=== PATIENT | female | born 1995 | race Caucasian/White ===

== ENCOUNTER 2024-10-11 15:15 | Emergency (ER) | payer OTHER, SELFPAY ==
[2024-10-11 15:26] VITALS: BP 165/97; PULSE 115; RESP 17; TEMP 36.4; O2SAT 100
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
[2024-10-11] MEDS: FLUORESCEIN SOD 1 MG/STRIP AFFCTD EYE (16:12)
[2024-10-11] MEDS: TETRACAINE HCL 0.5% OPHTH SOLN 4 ML BTL 1 DROP AFFCTD EYE (16:12)
--- OUTSIDE RECORDS SUMMARY | 2024-10-11 16:48 | XMS_ITS | Clinical Summary ---
Author Organization [facility] Address [facility] [place] [address] Care Team Providers Care Glue Line Operator Name Role Phone Melissa Chaney KENNEL SUPERVISOR Primary Care Provider [phone] Allergies Active Allergy Reactions Criticality Noted Date Comments Steroids Other (see comment) High 04/18/2020 DKA Tramadol Vomiting High 04/18/2020 Medications metFORMIN 500 MG tablet Take 500 mg by mouth 2 (two) times a day. 0 Active insulin lispro 100 UNIT/ML patient supplied PUMP Inject into the skin continuous. Make and model of pump: omnipod Insulin type in pump: lispro Basal rate: 1.85 9a-9p 1.65 9p-9a Insulin to CHO ratio: Patient does not have Insulin Sensitivity factor: Patient does not have Active fluconazole (DIFLUCAN) 200 MG tablet Take 1 tablet (200 mg total) by mouth once as needed. 1 tablet 2 Active psyllium (KONSYL) 100 % Pack Take 1 packet by mouth daily. May substitute with any fiber supplement 30 packet 2 Active Active Problems No known active problems Social History Tobacco Use Types Packs/Day Years Used Date Smoking Tobacco: Former Cigarettes Smokeless Tobacco: Never Alcohol Use Standard Drinks/Week Comments Never 0 (1 standard drink = 0.6 oz pur e alcohol) AUDIT-C Answer Date Recorded Frequency of Alcohol Consumption Never 01/30/2020 Average Number of Drinks Not on file 020 Frequency of Binge Drinking Not on file 01/11 Comments No Sex and Gender Information Value Date Recorded Sex Assigned at Not on file Legal Sex Female 2:54 AM CDT Gender Identity Not on file Sexual Orientation Not on file Last Filed Vital Signs Vital Sign Reading Time Taken Comments Blood Pressure 129/92 06/19/2023 12:29 AM OIL WELL SERVICE UNIT OPERATOR Pulse 88 06/19/2023 12:29 AM OIL WELL SERVICE UNIT OPERATOR Temperature 36.4 C (97.6 F) 06/18/2023 10:13 PM OIL WELL SERVICE UNIT OPERATOR Respiratory Rate 18 06/19/2023 12:29 AM OIL WELL SERVICE UNIT OPERATOR Oxygen Saturation 100% 06/19/2023 12:29 AM OIL WELL SERVICE UNIT OPERATOR Inhaled Oxygen Concentration - - Weight 95.3 kg (210 lb) 06/18/2023 10:13 PM OIL WELL SERVICE UNIT OPERATOR Height 160 cm (5' 3 ) 06/18/2023 10:13 PM OIL WELL SERVICE UNIT OPERATOR Body Mass Index 37.2 06/18/2023 10:13 PM OIL WELL SERVICE UNIT OPERATOR Plan of Treatment Health Maintenance Due Date Last Done Comments Cervical Cancer Screening Pa p Smear (Age 30 to 64) Every 3 Years 1994 Annual Physical 1997 Hepatitis C 2012 Hepatitis B Vaccines (1 of 3 - 19+ 3-dose series) 2013 COVID-19 Vaccine (2023-2 5 season) 2024 Cervical Cancer Screening Pa p with HPV Testing (Age 30 to 64) Every 5 Years 2024 Cervical Cancer Screening with HPV 2024 DTaP, Tdap and Td Vaccines ( 2 - Td or Tdap) 09/22/2031 09/21/2021 HPV Vaccines Aged Out No longer eligi ble based on patient's age to complete this topic Meningococcal B Vaccine Aged Out No l onger eligible based on patient's age to complete this topic Meningococcal Vaccine Aged Out No fermin adarsh eligible based on patient's age to complete this topic Pneumococcal Vaccine: Pediat rics (0 to 5 Years) and At-Risk Patients (6 to 64 Years) Aged Out No longer eligi ble based on patient's age to complete this topic RSV Immunizations Under 20 Months Aged Out No longer eligible based on patient's age to complete this topic Insurance [facility] Care Teams Glue Line Operator Relationship Specialty Start Date End Date Melissa Chaney, [facility] [address] [place] [address] PCP - General NURSE PRACTITIONER 01/27/22
--- OUTSIDE RECORDS SUMMARY | 2024-10-11 16:48 | XMS_ITS | Clinical Summary ---
Author Organization [facility] Address [address] [place] [id number] Care Team Providers Care Primer Inserting Machine Operator Name Role Phone Unavailable Primary Care Provider Unavailabl e Allergies Active Allergy Reactions Criticality Noted Date Comments Prednisone Other (see comments) 07/12/2021 Causes DKA Tramadol Other (see comments),Vomiting Medium 2019 Medications * This document contains information received from the source organization and may not represent a complete record from that organization. insulin aspart (NovoLOG) 100 UNIT/ML patient supplied pump Inject under the skin continuously Active spironolactone (ALDACTONE) 50 MG tablet Take 50 mg by mouth in the morning and 50 mg in the evening. Active metFORMIN (GLUCOPHAGE) 500 MG tablet Take 500 mg by mouth in the morning and 500 mg in the evening. Take with meals. Active amitriptyline (ELAVIL) 75 MG tablet Take by mouth every night Active rosuvastatin (CRESTOR) 10 MG tablet Take 10 mg by mouth 1 (one) time each day Active QUEtiapine (SEROquel) 50 MG tablet Take 50 mg by mouth every night Active Drospirenone (Slynd) 4 MG tablet Take 1 tablet by mouth 1 (one) time each day Active Active Problems Problem Noted Date Diagnosed Date Obese class II 10/30/2021 Diabetes mellitus with unspe cified complication, type I (juvenile type), not stated as uncontrolled 10/29/2021 Other anxiety states 10/29/2021 Insomnia with sleep apnea 10/29/2021 Proteinuria 10/29/2021 Polycystic ovary 10/29/2021 Family History Medical History Relation Comments Heart disease Father Diabetes Maternal Grandmother Diabetes Mother Relation Status Comments Father Alive Maternal Grandmother Mother Social History Tobacco Use Types Packs/Day Years Used Date Smoking Tobacco: Former Cigarettes Alcohol Use Standard Drinks/Week Comments Yes 0 (1 standard drink = 0.6 oz pur e alcohol) Comments Unknown Sex and Gender Information Value Date Recorded Sex Assigned at Not on file Legal Sex Female 2:25 PM EST Gender Identity Not on file Sexual Orientation Not on file Last Filed Vital Signs Vital Sign Reading Time Taken Comments Blood Pressure 122/70 10/30/2021 11:29 AM CDT Pulse 105 10/30/2021 11:29 AM CDT Temperature 35.7 C (96.2 F) 10/30/2021 11:29 AM CDT Respiratory Rate 20 10/30/2021 11:29 AM CDT Oxygen Saturation 98% 10/30/2021 11:29 AM CDT Inhaled Oxygen Concentration - - Weight 105 kg (231 lb) 10/30/2021 11:29 AM CDT Height 162.6 cm (5' 4 ) 10/30/2021 11:29 AM CDT Body Mass Index 39.65 10/30/2021 11:29 AM CDT Plan of Treatment Health Maintenance Due Date Last Done Comments Hepatitis B Vaccine (1 of 3 - 19+ 3-dose series) 2013 Diabetes: Ophthalmology Exam 10/29/2021 Diabetes: Pedal Pulse Checked 10/29/2021 Diabetes: Sensory Foot Exam 10/29/2021 Diabetes: Visual Foot Exam 10/29/2021 Diabetes: Hemoglobin A1C 11/21/2021 08/24/2021 Influenza Vaccine (#1) 2024 Pneumococcal Vaccine: Pediat rics (0 to 5 Years) and At-Risk Patients (6 to 64 Years) Aged Out No longer eligi ble based on patient's age to complete this topic Procedures Procedure Name Priority Date/Time Associated Diagnosis Comments EXT RESULT ENTRY Routine 08/24/2021 from Last 3 Months or Most Recently Relevant to Health Maintenance Results * (ABNORMAL) EXT RESULT ENTRY (08/24/2021) WBC 6.6 3.3 - 10.0 10*3/ML Red Blood Cell Count 5.02 Hemoglobin 14.8 12.0 - 16.0 Hematocrit 44.0 36.0 - 46.0 Platelets 350 150 - 399 10*3/UL Sodium 139 137 - 147 Potassium 4.5(A) 3.4 - 5.5 Chloride 103.0 99.0 - 108.0 Bicarbonate (CO2) 24 22 - 30 mmol/L Anion Gap 17 <=30 MMOL/L Glucose 171 60 - 200 BUN 11 4 - 21 mg/dL Creatinine 0.61 0.50 - 1.10 mg/dL Total Protein 7.7 6.4 - 8.2 G/DL Albumin 4.6 3.5 - 5.0 g/dL Calcium 8.7 8.7 - 10.7 mg/dL eGFR Non-Afr Syrian >60 Hemoglobin A1C 7.3(A) 4.0 - 6.0 Microalbumin Urine Random (External Result Entry) 410.0 Glucose, UA 1000 4+ mg/dL Bilirubin, UA Negative Ketones, UA Negative Spec Grav, UA 1.026 Blood, UA 1+ John/ul pH, UA 5.5 Protein, UA 50 mg/dL Urobilinogen, UA Normal Nitrite, UA Negative Leukocytes, UA 25 WBC, Urine 10-20(A) None Seen, Occasional, 0-2 /HPF RBC, Urine Full Field None Seen, Occasional, 1-5 /HPF Epithelial Cells in Urine None Seen /HPF Bacteria, Urine None Seen None Seen, Occasional /HPF Triglycerides 100 40 - 160 Cholesterol 226(A) 0 - 200 HDL 48 35 - 70 MG/DL LDL Calculated 158 0 - 160 mg/dL TSH 1.680 08/24/2021 Historical Provider LAB BLOOD ORDERABLES Soumya l Result from Last 3 Months or Most Recently Relevant to Health Maintenance Insurance [facility] ([id number])
--- OUTSIDE RECORDS SUMMARY | 2024-10-11 16:48 | XMS_ITS | Clinical Summary ---
Author Organization [facility] Address [address] [place] [address] Care Team Providers Care Dimension Quarry Supervisor Name Role Phone [address] Primary Care Prov ider Source Comments [facility],non-owned Affiliates and Associated Physician Practices is amultiple site organization consisting of ambulatory clinics and hospital sitesin [place], [place], [place] and [place]. This disclosure is being madepursuant to the Care Everywhere program and may not contain all information available regarding this patient. Last updated 18.[facility] Allergies Active Allergy Reactions Criticality Noted Date Comments Prednisone Other 07/12/2021 Causes DKA Tramadol Psychiatric Medium 07/12/2021 Medications * Be aware that medications may not be up to date on this document. Alwaysverify current medications with the patient. Medication Sig Dispensed Refills Start Date End Date Status Insulin Lispro (HUMALOG KWIKPEN SC) Active Social History Tobacco Use Types Packs/Day Years Used Date Smoking Tobacco: Former Smokeless Tobacco: Never PHQ-2 Answer Date Recorded PHQ2 TOTAL SCORE 0 07/12/2021 Sex and Gender Information Value Date Recorded Sex Assigned at Not on file Gender Identity Not on file Sexual Orientation Not on file Plan of Treatment Health Maintenance Due Date Last Done Comments PAP SMEAR 1994 HIV SCREENING 2009 HEPATITIS C SCREENING 07/14/2012 DTAP/TDAP/TD VACCINES (1 - Tdap) 2013 HEPATITIS B VACCINE (1 of 3 - 19+ 3-dose series) 2013 COVID-19 VACCINE (2023-2 5 season) 2024 INFLUENZA VACCINE (#1) 2024 DEPRESSION SCREENING 07/14/2024 ZOSTER VACCINE (1 of 2) 2044 HIB VACCINE Aged Out No longer eligi ble based on patient's age to complete this topic HPV VACCINE Aged Out No longer eligi ble based on patient's age to complete this topic MENINGOCOCCAL (Group B) VACC INE SHARED DECISION-MAKING Aged Out No longer eligibl e based on patient's age to complete this topic MENINGOCOCCAL GROUPS A/C/Y/W VACCINE Aged Out No longer eligible b ased on patient's age to complete this topic PNEUMOCOCCAL VACCINE Aged Out No long er eligible based on patient's age to complete this topic Care Teams Dimension Quarry Supervisor Relationship Specialty Start Date End Date [facility] [address] [place] [address] PCP - General Family Medicine 07/12/21
--- OUTSIDE RECORDS SUMMARY | 2024-10-11 16:48 | XMS_ITS | Data Portability ---
Author Organization [place] [facility] [employer], Main Office Address [address] [place] [address] Assessment Encounter Date Assessment Date Assessment LastModified by Organization Details LastModified Time 05/03/2024 05/03/2024 Pt is not allergic to Prednisone. Its listed due to her DM I. Pt agreed with plan of care. [email or web address] Not available 05/03/2024 18:00:55 Plan of Treatment Reminders Order Date Submit Date Provider Last Modified By Organization Details Last Modified Time Details Appointments None recorded. Lab None recorded. Referral endocrinol ogy referral - Please call patient to schedule an appointmen t. Thank you. 2024 025 [email or web address] [place], [address] , [place], [address], 5 09:18:[address] referral - Please call patient to schedule an appointmen t. Thank you. 2024 025 ATHENAFAX [facility], [address], [address], [place], [address], 5 17:20:37 endocrinol ogy referral - Please call patient to schedule an appointmen t. Thank you. 2023 024 [email or web address] [facility] , [address] [place], [address], 4 08:44:12 Procedures None recorded. Surgeries None recorded. Imaging None recorded. Medication Orders levonorges trel-ethin yl estradiol 90 mcg-20 mcg (28) tablet 2024 025 [facility], [address] [place] [address], [address], 5 15:46:32 bupropion HCl XL 300 mg 24 hr tablet, extended release 2024 025 [facility], [address] [place] [address], [address], 5 15:46:32 azithromyc in 250 mg tablet 2024 025 [facility], [address] [facility], [place], [address], 5 15:28:50 azithromyc in 250 mg tablet 2023 024 [facility], [address] [facility], [place], [address], 5 15:28:50 prednisone 10 mg tablet 2023 024 [facility], [address] [facility], [place], [address], 4 15:32:09 benzonatat e 200 mg capsule 2023 024 [facility], [address] [facility], [place], [address], 4 15:31:55 azithromyc in 250 mg tablet 2023 024 [facility], [address] [facility], [place], [address], 5 15:28:50 Wegovy 0.25 mg/0.5 mL subcutaneo us pen injector 2023 024 [email or web address] [facility], [address] [facility], [place], [address], 4 15:32:15 bupropion HCl XL 300 mg 24 hr tablet, extended release 2023 024 MATHEW [facility] [employer] [address], [address] [facility], [place], [address], 4 15:43:24 Patient TargetsNo targets recorded. Patient Instructions Encounter Date Encounter Id Patient Instructions Last Modified By Organization Details Last Modified Time 08/20/2024 [id number] stop otc cold preps , recheck BP on own [email or web address] Not available 08/22/2024 15:02:04 Reason for Referral Endocrinology Referral for T ype 1 diabetes mellitus Please call patient to schedule an appointment. Thank you. Referring Physician: [facility], Encounter Date: 03/25/2024 Endocrinology Referral for T ype 1 diabetes mellitus Please call patient to schedule an appointment. Thank you. Referring Physician: [facility], Encounter Date: 09/07/2024 Wireless Network Engineer Referral for Po lycystic ovary syndrome Please call patient to schedule an appointment. Thank you. Referring Physician: [facility], Encounter Date: 09/07/2024 Problems Name Problem SNOMED Code Status Onset Date Resolution Date Notes Provider Name and Address Organization Details Recorded Time Abdominal pain 05274349 Active 2021 Not Available [facility] 3 22:06:15 Polycysti c ovary syndrome 558779123 Active 2021 Not Available [facility] 3 22:06:15 Chest pain 44179394 Active 2021 Not Available [facility] 3 22:06:16 Type 1 diabetes mellitus without complicat ion 042488372 Completed 202109/07/2024 GENO Ferguson [address] [facility], [facility] [address], [place], [address] , [facility] [employer] [facility] 5 15:41:31 Dyslipide ho 161778486 Active 2021 Not Available [employer] 3 22:06:16 Diabetic periphera l neuropath y 596313862 Active 2021 Not Available [facility] 3 22:06:16 Uncontrol led type 1 diabetes mellitus 353607700 Completed 202109/07/2024 GENO Ferguson [address], [address], [place], [address] , [employer] 5 15:41:19 Diarrhea 77769815 Active 2021 Not Available [facility] 3 22:06:16 Diabetes mellitus 43353239 Active 2021 Not Available [facility] 3 22:06:16 Hyperglyc emia due to type 1 diabetes mellitus 52589870019 9101 Completed 202209/07/2024 GENO Ferguson [address], [address], [place], [address] , [employer] 5 15:43:22 Pain in throat 153214553 Completed 202209/07/2024 GENO Ferguson [address], [address], [place], [address] , [employer] 5 15:42:31 Pharyngit is [id number] Completed 202209/07/[address], [place], [address] , [employer] 5 15:41:50 Fatigue 34808566 Active 2022 IWONA Chan, [employer] 3 16:05:31 Insomnia 391177419 Completed 202309/07/2024 GENO Ferguson [address], [address], [place], [address] , [employer] 5 15:42:48 Mixed anxiety and depressiv e disorder 486183404 Active 2023 GENO Ferguson [address], [address], [place], [address] , [employer] [facility] 4 15:11:31 Type 1 diabetes mellitus 65074874 Active 2023 GENO Ferguson [address], [address], [place], [address] , [employer] [facility] [employer] 4 15:32:52 Obesity 227701570 Active 2023 GENO Ferguson [address], [address], [place], [address] , [employer] [facility] [employer] 4 15:35:34 Cough 75199843 Active 2023 Zenon Boykin MD [address], [address], [place], [address] , [employer] [facility] 4 17:31:30 Change in voice 920843316 Active 2023 Zenon Boykin MD [address], [address], [place], [address] , [employer] [facility] [facility] [employer] 4 17:31:36 Bronchiti s 65564253 Active 2023 Zenon Boykin MD [address], [address], [place], [address] , [employer] [facility] 4 17:31:42 Laryngiti s 60524864 Completed 202309/07/2024 GENO Ferguson [address], [address], [place], [address] , [employer] [facility] [employer] 5 15:42:43 Loss of voice 64840015 Completed 202309/07/2024 GENO Ferguson [address], [address], [place], [address] , [employer] [facility] 5 15:42:35 Community acquired pneumonia 181755659 Active 2023 GENO Ferguson [address] [facility], [facility] [address], [place], [address] , [facility] 4 15:41:58 Problem Notes None recorded. Procedures Surgical History Date Name Laterality Status Provider Name and Address Organization Details Recorded Time Tonsillectomy completed Not Available [facility] 09/11/2022 22:05:28 Imaging Results None recorded. Procedure Notes None recorded. Medical Equipment None Reported. Allergies Allergen ID Allergen Name Allergen Category Reaction Reaction Severity Criticality Documentation Date Start Date Code Code System Note Provider Name and Address Organization Details Recorded Time 75471 tramadol medicatio n vomiting Not available Not available 09/11/2022 70352 RxNorm Not Available Pending sale to [facility] 3 22:07:57 28563 prednison e medicatio n Not available Not available Not available 09/11/2022 8640 RxNorm Not Available Pending sale to [facility] 3 22:07:57 Medications Name Sig Start Date Stop Date Status Note LastModified by Organization Details LastModified Time Prescriptio n - Prior Authorizati on Request active Not Available Not Available N ot Available quetiapine 25 mg tablet TAKE 3 TABLETS BY MOUTH EVERY DAY AT BEDTIME 02/11 completed Not Available Not Available Not Available cyclobenzap rine 10 mg tablet 03/23 completed Not Available Not Available Not Available metformin 500 mg tablet TAKE 1 TABLET BY MOUTH TWICE DAILY 11/02 completed Not Available Not Available Not Available prednisone 10 mg tablet TAKE 4 TABLETS BY MOUTH ONCE DAILY FOR 2 DAYS THEN 2 ONCE DAILY FOR 2 DAYS THEN 1 ONCE DAILY FOR 3 DAYS WITH FOOD 06/03 completed Not Available Not Available Not Available trazodone 50 mg tablet TAKE 1 TABLET BY MOUTH AT BEDTIME NEEDED FOR SLEEP 02/11 completed Not Available Not Available Not Available azithromyci n 250 mg tablet take 2 tabs on day 1 by mouth, 1 tab on days 2-6 09/07 completed Not Available Not Available Not Available Glucagon Emergency Kit 1 mg solution for injection active Not Available Not Available No t Available amitriptyli ne 75 mg tablet TAKE 1 TABLET BY MOUTH EVERY DAY AT BEDTIME 10/24 completed Not Available Not Available Not Available fluconazole 150 mg tablet Take 1 tablet by mouth 1 times a day. May take the 2nd pill by mouth 2 days later if symptoms are still present. 10/24 completed Not Available Not Available Not Available benzonatate 200 mg capsule TAKE 1 CAPSULE BY MOUTH EVERY 8 HOURS NEEDED FOR 7 DAYS 06/03 completed Not Available Not Available Not Available fluconazole 200 mg tablet 02/11 completed Not Available Not Available Not Available Lantus U-100 Insulin 100 unit/mL subcutaneou s solution 40 units at night 2023 active Not Available Not Available Not Avai lable metronidazo le 500 mg tablet TAKE 4 TABLETS BY MOUTH TAKEN TOGETHER 10/15 completed Not Available Not Available Not Available acyclovir 400 mg tablet TAKE 1 TABLET BY MOUTH EVERY 8 HOURS FOR 2 DAYS 02/11 completed Not Available Not Available Not Available Tamiflu 75 mg capsule 03/23 completed Not Available Not Available Not Available tramadol 50 mg tablet 03/23 completed Not Available Not Available Not Available amoxicillin 500 mg tablet TAKE 2 TABLETS BY MOUTH EVERY DAY FOR 10 DAYS 10/15 completed Not Available Not Available Not Available acyclovir 800 mg tablet TAKE 1 TABLET BY MOUTH TWICE DAILY 02/11 completed Not Available Not Available Not Available propranolol 10 mg tablet Take 1-2 tabs TID PRN ANXIETY active Not Available Not Available No t Available amoxicillin 875 mg tablet TAKE 1 TABLET BY MOUTH EVERY 12 HOURS FOR 7 DAYS 02/11 completed Not Available Not Available Not Available amitriptyli ne 25 mg tablet Take 1 tablet every day by oral route at bedtime for 30 days. active Not Available Not Available No t Available hyoscyamine ER 0.375 mg tablet,exte nded release,12 hr Take 1 tablet every 12 hours by oral route as needed for 30 days. 02/11 completed Not Available Not Available Not Available dicyclomine 20 mg tablet 03/23 completed Not Available Not Available Not Available cephalexin 500 mg capsule 10/24 completed Not Available Not Available Not Available diclofenac sodium 75 mg tablet,cory yed release 03/23 completed Not Available Not Available Not Available gabapentin 100 mg capsule TAKE 1 CAPSULE BY MOUTH THREE TIMES DAILY 02/11 completed Not Available Not Available Not Available Novolog U-100 Insulin aspart 100 unit/mL subcutaneou s solution USE UP TO 20 UNITS DAILY IN PUMP 02/11 completed Not Available Not Available Not Available insulin lispro (U-100) 100 unit/mL subcutaneou s solution USE WITH PUMP 60 UNITS UNDER THE SKIN DAILY DIRECTED 10/15 completed Not Available Not Available Not Available ibuprofen 600 mg tablet 03/23 completed Not Available Not Available Not Available ondansetron 4 mg disintegrat ing tablet 03/23 completed Not Available Not Available Not Available metformin ER 500 mg tablet,exte nded release 24 hr TAKE 1 TABLET BY MOUTH TWICE DAILY 02/11 completed Not Available Not Available Not Available amitriptyli ne 100 mg tablet TAKE 1 TABLET BY MOUTH ONCE DAILY AT BEDTIME active Not Available Not Available No t Available dicyclomine 10 mg capsule Take 1 capsule 3 times a day by oral route for 30 days. 02/11 completed Not Available Not Available Not Available loratadine 10 mg tablet TAKE 1 TABLET BY MOUTH EVERY DAY 02/11 completed Not Available Not Available Not Available spironolact one 50 mg tablet TAKE 2 TABLETS BY MOUTH EVERY DAY 02/11 completed Not Available Not Available Not Available escitalopra m 10 mg tablet Take 1 tablet every day by oral route for 30 days. active Not Available Not Available No t Available rosuvastati n 10 mg tablet TAKE 1 TABLET BY MOUTH EVERY DAY AT BEDTIME 02/11 completed Not Available Not Available Not Available bupropion HCl XL 300 mg 24 hr tablet, extended release Take 1 tablet every day by oral route as directed for 30 days. 2024 active Not Available Not Available Not Avai lable bupropion HCl XL 150 mg 24 hr tablet, extended release TAKE 1 TABLET BY MOUTH ONCE DAILY DIRECTED FOR 14 DAYS 03/25 completed Not Available Not Available Not Available hydrocodone 7.5 mg-acetamin ophen 325 mg/15 mL oral solution Take 15 mL every 6 hours by oral route as needed. 10/15 completed Not Available Not Available Not Available cefdinir 250 mg/5 mL oral suspension 10/15 completed Not Available Not Available Not Available lactulose 10 gram/15 mL oral solution 02/11 completed Not Available Not Available Not Available quetiapine 50 mg tablet 02/11 completed Not Available Not Available Not Available FreeStyle Lite Strips 02/11 completed Not Available Not Available Not Available levonorgest rel-ethinyl estradiol 90 mcg-20 mcg (28) tablet Take 1 tablet every day by oral route as directed for 28 days. 2024 active Not Available Not Available Not Avai lable cefixime 400 mg capsule TAKE ONE CAPSULE BY MOUTH DAILY FOR TWO DAYS 10/15 completed Not Available Not Available Not Available Humalog Mix 10-15 units TID active Not Available Not Available No t Available Basaglar KwikPen U-100 Insulin 100 unit/mL (3 mL) subcutaneou s ADMINISTE R 45 UNITS UNDER THE SKIN EVERY DAY 02/11 completed Not Available Not Available Not Available Omnipod Dash Pods (Gen 4) subcutaneou s cartridge USE DIRECTED active Not Available Not Available No t Available Slynd 4 mg (28) tablet TAKE 1 TABLET BY MOUTH AT THE SAME TIME EVERY DAY 02/11 completed Not Available Not Available Not Available ID NOW COVID-19 Test Kit TEST DIRECTED TODAY 02/11 completed Not Available Not Available Not Available Wegovy 0.25 mg/0.5 mL subcutaneou s pen injector Inject 0.25 mg every week by subcutane ous route as directed for 28 days. 06/03 completed Not Available Not Available Not Available Paxlovid 300 mg (150 mg x 2)-100 mg tablets in a dose pack TK 2 NIRMATREL VIR TS AND 1 RITONAVIR T TOGETHER PO BID FOR 5 DAYS 02/11 completed Not Available Not Available Not Available Vitals Date Recorded Body height Body mass index (BMI) Body weight Body temperature Heart rate Respiratory rate Oxygen saturation Oxygen saturation in Arterial blood by Pulse oximetry Systolic blood pressure Diastolic blood pressure Provider Name and Address Organization Details Last Updated DateTime 4 162.56 cm 35.2 kg/m2 98049.1 4 g 97.2 [degF] 104 /min 20 /min 98 % 98 % 120 mm[Hg] 78 mm[Hg] Qian Farmer RN [place] [facility] [employer] 4 15:28:14 Date Recorded Body height Body mass index (BMI) Body weight Body temperature Heart rate Respiratory rate Oxygen saturation Oxygen saturation in Arterial blood by Pulse oximetry Systolic blood pressure Diastolic blood pressure Provider Name and Address Organization Details Last Updated DateTime 4 162.56 cm 36 kg/m2 39703.0 4 g 98.1 [degF] 86 /min 20 /min 98 % 98 % 118 mm[Hg] 72 mm[Hg] Manuel Shore [facility] 4 17:40:46 Date Recorded Body height Body mass index (BMI) Body weight Body temperature Heart rate Respiratory rate Oxygen saturation Oxygen saturation in Arterial blood by Pulse oximetry Pain severity - 0-10 verbal numeric rating [Score] - Reported Systolic blood pressure Diastolic blood pressure Provider Name and Address Organization Details Last Updated DateTime 4 162.56 cm 36.6 kg/m2 50761.9 7 g 98.1 [degF] 101 /min 24 /min 99 % 99 % 2 160 mm[Hg] 88 mm[Hg] Qian Farmer RN [facility] [employer] [facility] 4 15:35:25 Date Recorded Body height Body mass index (BMI) Body weight Body temperature Heart rate Respiratory rate Oxygen saturation Oxygen saturation in Arterial blood by Pulse oximetry Pain severity - 0-10 verbal numeric rating [Score] - Reported Systolic blood pressure Diastolic blood pressure Provider Name and Address Organization Details Last Updated DateTime 5 162.56 cm 40 kg/m2 075400. 02 g 97.9 [degF] 98 /min 20 /min 99 % 99 % 2 140 mm[Hg] 98 mm[Hg] Qian Farmer RN [facility] [employer] [facility] 5 11:20:14 Date Recorded Body height Body mass index (BMI) Body weight Body temperature Heart rate Oxygen saturation Oxygen saturation in Arterial blood by Pulse oximetry Pain severity - 0-10 verbal numeric rating [Score] - Reported Respiratory rate Systolic blood pressure Diastolic blood pressure Provider Name and Address Organization Details Last Updated DateTime 5 162.56 cm 38.5 kg/m2 796450. 39 g 97.7 [degF] 106 /min 97 % 97 % 1 20 /min 130 mm[Hg] 86 mm[Hg] Qian Farmer RN [facility] 15:31:02 Social History Question Answer Notes LastModified by Organization Details LastModified Time Tobacco Smoking Status Former Smoker Evy garcia [facility] [employer] [facility] 10/24/2022 09:07:13 Do You Have An Advance Directive? No [id number] Information not available 09/11/2022 What Is Your Level Of Alcohol Consumption? None [id number] Information not available 09/11/2022 Do You Wear A Helmet When Biking? No Information not available 10/24/2022 What Is Your Level Of Caffeine Consumption? None [id number] Information not available 09/11/2022 In The 14 Days Before Symptom Onset, Have You Had Close Contact With A Laboratory-confi rmed COVID-19 While That Case Was Ill? No Information not available 10/24/2022 In The 14 Days Before Symptom Onset, Have You Had Close Contact With A Person Who Is Under Investigation For COVID-19 While That Person Was Ill? No [email or web address] Information not available 10/24/2022 Are You Currently Employed? Yes Information not available 02/12/2024 What Type Of Diet Are You Following? REGULAR [id number] Information not available 09/11/2022 What Is The Highest Grade Or Level Of School You Have Completed Or The Highest Degree You Have Received? [id number] [email or web address] Information not available 10/24/2022 What Is Your Occupation? [employer] Information not available 02/12/2024 Have There Been Any Changes To Your Family Or Social Situation? No Information not available 06/03/2024 What Is The Fluoride Status Of Your Home? Unknown [email or web address] Information not available 10/24/2022 When Did You Quit Smoking? 1-5yearssincelastci antonio Information not available 10/24/2022 Are There Any Guns Present In Your Home? No [email or web address] Information not available 10/24/2022 Do You Use Insect Repellent Routinely? Yes [email or web address] Information not available 10/24/2022 [email or web address] Information not available 10/24/2022 Are You Following A Low Salt Diet? No [email or web address] Information not available 10/24/2022 Do You Have A Medical Power Of Insurance Verification Representative? No [email or web address] Information not available 10/24/2022 How Many Children Do You Have? 0 Information not available 02/12/2024 Do You Have Any Pets? Yes Information not available 10/24/2022 What Is Your Relationship Status? [id number] Information not available 09/11/2022 Do You Use Your Seat Belt Or Car Seat Routinely? Yes [email or web address] Information not available 10/24/2022 Do You Have Smoke And Carbon Monoxide Detectors In Your Home? Yes [email or web address] Information not available 10/24/2022 At What Age Did You Start Smoking Tobacco? 17 [email or web address] Information not available 10/24/2022 Are You Passively Exposed To Smoke? No [email or web address] Information not available 10/24/2022 Are There Any Smokers In Your House? No Information not available 10/24/2022 Do You Participate In Social Media? No Information not available 10/24/2022 Do You Feel Stressed (tense, Restless, Nervous, Or Anxious, Or Unable To Sleep At Night)? [id number] Information not available 02/12/2024 Do You Use Any Illicit Or Recreational Drugs? No [email or web address] Information not available 10/24/2022 Do You Use Sunscreen Routinely? No [email or web address] Information not available 10/24/2022 How Many Years Have You Smoked Tobacco? 7 [email or web address] Information not available 10/24/2022 Have You Recently Traveled Abroad? No [email or web address] Information not available 10/24/2022 Are You Currently In School? Yes [email or web address] Information not available 10/24/2022 Do You Have Any Dietary Restrictions? Yes Carbs/da iry [email or web address] Information not available 10/24/2022 Do You Or Have You Ever Used Any Other Forms Of Tobacco Or Nicotine? No [email or web address] Information not available 10/24/2022 Sex: Female Functional Status Question Answer Note LastModified by Organizat ion Details LastModified Time What is your exercise level? Occasional [id number] Information not available 09/11/2022 Mental Status None recorded. Family History Relationship Description Onset Age of this Age Resolved Age Notes LastModified by Organization Details LastModified Time Father Congenital heart disease [email or web address] Not available 09/07 15:22:41 Mother Endometriosi s (clinical) [email or web address] Not available 15:22:41 Mother Legal blindness Lt eye [email or web address] Not available 09/07 15:22:41 Mother Hearing loss [email or web address] Not kylie ilable 09/07/2024 15:22:41 Mother Obesity [email or web address] Not availabl e 09/07/2024 15:22:41 Mother Bipolar disorder [email or web address] Not available 09/07 15:22:41 Mother Diabetes mellitus [id number] Not available 09/11/2022 22:05:29 Medical History Condition Response BLINDNESS N RHEUMATIC FEVER N KIDNEY STONES N BLADDER PROBLEMS N MRSA N OTHER # 1 Y POLIO N LUNG DISEASE/DISORDER N HISTORY OF DRUG ABUSE N COPD N RADIATION / CHEMOTHERAPY N Other # 2 N BLOOD DISEASES N SURGERY N EAR OR HEARING PROBLEMS N MUMPS N SHINGLES N BOWEL PROBLEMS N FEMALE PROBLEMS / INFECTIONS N DEPRESSION (INCLUDING POST ) Y STROKE/TIA N THYROID DISEASE N ULCERS N BENIGN PROSTATIC HYPERPLASIA N MEASLES N CERVICALGIA N HYPOTENSION N TB SKIN TEST N MYOCARDIAL INFARCTION N PARAPELGIA N OBESITY Y GERD/NAUSEA N ANEURYSM N URINARY/BLADDER/KIDNEY PROBLEMS N CORONARY ARTERY DISEASE (CAD) N MENIERE'S DISEASE N ADDICTION CONCERNS N ENDOMETRIOSIS N USE OF BLOOD THINNERS N SKIN PROBLEMS N EMPHYSEMA N GASTROINTESTINAL DISORDER N MUSCLE,JOINT OR BONE PROBLEMS N GASTROINTESTINAL BLEEDING N BLOOD CLOTS N ASTHMA N CATARACTS N ERECTILE DYSFUNCTION N GI PROBLEMS N CHF N Low Testosterone N NEUROPATHY N INFERTILITY N AIDS/HIV N FRACTURES N CHEMOTHERAPY / RADIATION N VISION/EYE PROBLEMS N LIVER DISEASE N MALE HYPOGONADISM N HYPERTENSION N TOURETTE'S N ANXIETY DISORDER Y BLOOD TRANSFUSION N ANEMIA/BLOOD DISORDER N CHRONIC EAR INFECTIONS N BRONCHITIS N TUBERCULOSIS N GLAUCOMA N FOOT PROBLEM N DIVERTICULITIS N CHICKENPOX N SLEEP APNEA N ALLERGIES/HAYFEVER N INFECTIOUS DISEASE N HEART ARRHYTHMIA N PROSTATE N INSOMNIA N HIGH CHOLESTEROL / HYPERLIPIDEMIA N HYPERTHYROIDISM N EYE PROBLEMS N EATING DISORDER N EDEMA N CHRONIC PAIN SYNDROME N CONSTIPATION Y CAROTID BLOCKAGE N BACK / NECK PROBLEMS N HAVE YOU BEEN HOSPITALIZED OR SEEN IN [facility] IN THE PAST YEAR ? N ATHEROSCLEROSIS N BREAST PROBLEMS N DIALYSIS N ECZEMA N FIBROMYALGIA N OSTEOPOROSIS N ARTHRITIS N NO SIGNIFICANT PAST MEDICAL HISTORY N APPENDICITIS N DIABETES, TYPE Y BAD TEETH N HEARTBURN / REFLUX Y ADD/ADHD N AUTISM SPECTRUM DISORDER (ASD) N HEPATITIS / LIVER DISEASE N PULMONARY DISEASE N GOUT N SLEEP DISORDER N ALZHEIMER'S DISEASE N PAIN N HERPES N DEMENTIA N HEADACHES/MIGRAINES N SEIZURES/EPILEPSY N VASCULAR DISEASE N PACEMAKER N DIZZINESS N HEART DISEASE/HEART PROBLEMS N KIDNEY DISEASE Y DEVELOPMENTAL OR BEHAVIORAL DISORDERS N MULTIPLE SCLEROSIS N SCARLET FEVER N MENTAL DISORDER/ILLNESS N CARDIAC ARRHYTHMIA N CANCER: SPECIFY N PNEUMONIA N ATRIAL FIBRILLATION N Gall Stones N PULMONARY EMBOLISM N AUTOIMMUNE DISEASE N Gynecological History Statement/Question Response Abnormal Pap N Flow Heavy Date of LMP 08/17/2024 Dislike of Light during Menstrual Headac he N Date of Last Pap Duration of Flow (days) 7 Age at Menarche 12 Current Control Method None Breast Problems none How many live births 0 Frequency of Cycle (Q days) Menses Monthly N Obstetrics History GPAL:G 0 P 0 0 1 0 Type Value Spontaneous 1 Living 0 Immunizations Vaccine Type Date Status Note Provider Nam e and Address Organization Details Recorded Time Tdap 09/21/2021 completed Not Available [facility] 09/11/2022 22:07:56 Past Encounters Encounter ID Performer Location Encounter Start Date Encounter Closed Date Diagnosis/Indication Diagnosis SNOMED-CT Code Diagnosis ICD10 Code Diagnosis Note [id number] [facility] [address] [place] [address] 08/24/2021 00:00:00 08/24/2021 18:18:46 [id number] [facility] [address] [place] [address] 09/07/2021 00:00:00 09/07/2021 11:45:45 [id number] [facility] [address] [place] [address] 09/21/2021 00:00:00 09/21/2021 14:02:00 [id number] [facility] [address] [facility] [address] [place] [address] 10/15/2021 00:00:00 10/15/2021 16:24:00 [id number] [facility] [place] [facility] [address] [place] [address] 10/19/2021 00:00:00 10/19/2021 14:03:40 [id number] _ATHENA_M IGRATION_ DEFAULT_1 _1 , 11/07/2021 00:00:00 11/07/2021 16:39:53 [id number] [facility] [place] [facility] [address] [place] [address] 11/21/2021 00:00:00 11/21/2021 20:44:15 [id number] [address] 10/16/2021 00:00:00 10/17/2021 16:53:32 [id number] [address] 11/13/2021 00:00:00 11/13/2021 14:38:[id number] [address] 01/03/2022 00:00:00 01/03/2022 14:16:54 [id number] [address] 04/08/2022 00:00:00 04/08/2022 15:30:40 [id number] GENO nAders S[facility] [place] [facility] [address] [place] [address] 10/24/2022 09:04:07 10/24/2022 09:41:21 Hyperglycemia due to type 1 diabetes mellitus 6621136157 75513 E10.65 ChronicUnk nown status.Denis l give temporary refill of Basaglar until pts new insurance goes into effect.Con tinue Basaglar 45 units dailyNovol og 20 units/day Body mass index 30+ - obesity 876842678 Z68.39 ChronicNot improved despite report of dieting/li festyle changes.Ad vised eat 3 meals daily with 1-2 healthy snacks, eliminate caloric drinks, no grazing btw meals, reduce packaged foods, portion control, modificati on of cooking style, low fat/low sugar items, 30 minutes of exercise at least 3x/week, reduce emotional/ stress eating, increase fruits/veg etables, take 15-20 minutes to eat.Encour aged pt to keep food diary for the next few weeks. Try to keep daily calorie count btw 3418-4012 calories. Gave meal planning handout. May need to consider referral to college of education dean/ nutritioni st as well.May also consider medication in the future (phentermi ne, topiramate , Contrave, Qysmia, Ozempic, bupropion) if appropriat e. [id number] CHANTE Alfaro [facility] [address] [place] [address] 11/06/2022 14:56:53 11/06/2022 16:05:14 [id number] Juanis Nieves MD [address] [place] [address] 11/18/2022 16:46:16 11/18/2022 16:59:56 [id number] Shea Meredith [address] [address] 02/12/2024 14:26:58 02/12/2024 15:20:02 Insomnia 704375393 F51.01 Mixed anxi ety and depressive disorder 964498189 F41.8 [id number] Shea Meredith [address] [address] 03/25/2024 15:21:07 03/25/2024 15:46:55 Mixed anxiety and depressive disorder 358194718 F41.8 Type 1 kojo betes mellitus 21064046 E10.9 Dexcom sample given in office Obesity 349698476 E66.9 Currently taking Wellbutrin and phentermin e contraindi cated for anxiety. [id number] eZnon Boykin MD [address] [place] [address] 05/03/2024 17:28:20 05/03/2024 17:55:45 Cough 36183625 R05.9 Laryngitis 30562255 J04. 0 Loss of voice 42935777 R 49.1 [id number] GENO Ferguson [address] [address] 06/03/2024 15:25:26 06/03/2024 15:45:13 Community acquired pneumonia 028721086 J18.9 Add Zyrtec and Mucinex DM, increase water intakeVita min C and Zinc [id number] CHANTE Smyth [address] [address] 08/20/2024 11:03:00 08/20/2024 11:30:45 Pharyngitis 102022859 J02.9 [id number] GENO Ferguson [address] [address] 09/07/2024 15:22:33 09/07/2024 16:02:34 Mixed anxiety and depressive disorder 185158931 F41.8 Well controlled with wellbutrin Type 1 kojo betes mellitus 16127394 E10.9 Taking [employer] insulin Polycystic ovary syndrome 037710509 E28.2 Severe pain and periods. Breakthrou gh bleeding with Norethidro ne Health Concerns Section Related Observation LastModified by Organization Detai ls LastModified Time None Recorded Concern Status LastModified by Organization Details LastModified Time None Recorded Advance Directives Directive N: Payers Encounter Date Sequence Insurance Name Policy Number Policy Keith Covered Member ID Keith Member ID Guarantor Name 03/25/2024 1 [place] - DOS PRIOR TO 2024 - [employer] () Portia Ronquillo [id number] Portia Ronquillo 03/25/2024 1 [facility] Portia Ronquillo [id number] Portia Ronquillo 05/03/2024 1 [place] - DOS PRIOR TO 2024 - [employer] () Portia Bhakti Kildow [id number] Portia Bhakti Kildow 05/03/2024 1 [facility] Portia Bhakti Kildow [id number] Portia Bhakti Kildow 06/03/2024 1 [place] - DOS PRIOR TO 2024 - [employer] () Portia Bhakti Kildow [id number] Portia Bhakti Kildow 06/03/2024 1 [facility] Portia Bhakti Kildow [id number] Portia Bhakti Kildow 08/20/2024 1 E[facility] - DOS PRIOR TO 2024 - [employer] () Portia Bhakti Kildow [id number] Portia Bhakti Kildow 08/20/2024 1 [facility] () Portia Bhakti Kildow [id number] Portia Bhakti Kildow 09/07/2024 1 [facility] () Portia Bhakti Kildow [id number] Portia Bhakti Kildow Notes Date Note Type Note Provider Name and Address Organization Details Recorded Time 03/25/2024 text/html Portia Ronquillo i s a 28 year old female patient here today to FU on mood and Type 1 DM She states she is feeling happier and now has motivation to get out of bed. She is on Wellbutrin XL 300 mg She has concerns with weight. She is eating low carbs, fats, and greasy foods. She is currently exercising 40 minutes per day. She has lost 25 lbs but has hit a plateau Flu shot: recommended at pharmacy for COVID vaccines: x2Tdap: 2021 GENO Ferguson [address] [facility] [address], [place], [address], [place] [facility] [employer] 03/25/2024 15:44:26 05/03/2024 text/html ACV: C/o loss of voice, sore throat, cough since she woke up today morning. 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 Denies any other known sick contact. No other concern. Pt has DM I and is on Insulin for it. Zenon Boykin MD [address], [place], [address], [employer] 05/03/2024 18:01:12 06/03/2024 text/html Portia Ronquillo i s a 28 year old female patient here today for a sick visit Began feeling sick approx 2 days ago, started with a fever then cough. Today she has chest tightness and feels like she cannot get a deep breath. Fatigue and malaise. Some sinus drainage Notes she has 3 students out of school right now with [employer] GENO Ferguson [address], [place], [address], [employer] 06/03/2024 15:44:55 08/20/2024 text/html sore throat , mi ld fever . CHANTE Smyth [address], [place], [address], [employer] 08/22/2024 15:02:19 09/07/2024 text/html Portia Ronquillo i s a 29 year old female patient here today for a work physical She needs a work clearance She would like to see gyne for PCOS She has type 1 DM GENO Ferguson [address], [place], [address], [employer] 09/07/2024 15:53:09 OBGyn Episode No OBEpisode recorded.
--- OUTSIDE RECORDS SUMMARY | 2024-10-11 16:49 | XMS_ITS | Continuity of Care Document ---
Author Name [facility] Organization [facility] Care Team Providers Care Aerodynamics Engineer Name Role Phone [facility] Unavailable Unavailable Allergies, Adverse Reactions, Alerts Combined list of allergies from Department of [facility] and [facility] facilities. It does not include entries that were removed or entered in error. Substance Category Reaction Severity Reaction type Status Date Reported Comments Source corticostero ids Drug allergy Anaphylaxis Severe Active Ambulato ry Pharmacy predniSONE Propensity to adverse reactions to drug Swelling Active Unknown Organiza tion Procedures Combined list of: 1) Procedures from Department of [facility] Affairs facilities going back up to thelast 18 months, not all [place] non-surgical procedures are included; 2) All procedures from the Department of [facility] facilities. Procedure Procedure Type Code Date Perfomer Comments Sourc e No data available for this section Ambulatory P harmacy Social History Combined list of available smoking, tobacco, and other social history from Department of Defense and [facility] facilities. Social History Type Response Date Comment Sourc e Sexual Orientation Ambula tory Pharmacy Gender identity Ambulator y Pharmacy Sex Representation Female (finding) Unknown Organization Assessment and Plan Combined list of future care activities from Department of Defense and [facility] facilities (e.g., assessment and plan notes, appointments, orders, and referrals). Additional future care activities may be listed in the Plan of Care section. Result Assessment and Plan Date Source Assessment and Plan No data available for this section 10/11/2024 Ambulatory Pharmacy Functional Status Combined list of recent functional and cognitive assessments recorded at Department of Defense and [facility] ([place] Functional [place] Measurement (FIM) Scale: 1 = Total Assistance (Subject = 0% +), 2 = Maximal Assistance (Subject = 25% +), 3 = Moderate Assistance (Subject = 50% +), 4 = Minimal Assistance (Subject = 75% +), 5 = Supervision, 6 = Modified [place] (Device), 7 = Complete [place] (Timely, Safely). Assessment Date/Time Source Assessment Type Assessment Skill Assessment Score Assessment Details No data available for this section
--- OUTSIDE RECORDS SUMMARY | 2024-10-11 17:41 | XMS_ITS | Clinical Summary ---
Author Organization [facility] Address [address] [place] [address] Care Team Providers Care Imaging Technologist Name Role Phone Unavailable Primary Care Provider [...] 8.7 8.7 - 10.7 mg/dL eGFR Non-Afr Lithuanian >60 Hemoglobin A1C 7.3(A) 4.0 - 6.0 [...] Most Recently Relevant to Health Maintenance Insurance [facility] ([id number])
--- OUTSIDE RECORDS SUMMARY | 2024-10-11 17:41 | XMS_ITS | Continuity of Care Document ---
Author Name [facility] Organization [facility] Care Team Providers Care Electrical Systems Design Engineer Name Role Phone [facility] Unavailable Unavailable Allergies, Adverse Reactions, Alerts Combined list of allergies from Department of [facility] and [facility] facilities. It does not include entries that [...] up to thelast 18 months, not all [place] non-surgical procedures are included; 2) All procedures from the Department of [facility] facilities. Procedure Procedure Type Code Date Perfomer Comments Sourc e No data available for this section Ambulatory P harmacy Social History Combined list of available smoking, tobacco, and other social history from [facility] Defense and [facility] facilities. Social History Type Response Date Comment Sourc e Sexual Orientation Ambula tory Pharmacy Gender identity Ambulator y Pharmacy Sex Representation Female (finding) Unknown Organization Assessment and Plan Combined list of future care activities from [facility] Defense and [facility] facilities (e.g., assessment and plan notes, appointments, orders, and referrals). Additional future care activities may be listed in the Plan of Care section. Result Assessment and Plan Date Source Assessment and Plan No data available for this section 10/11/2024 Ambulatory Pharmacy Functional Status Combined list of recent functional and cognitive assessments recorded at [facility] [place] Functional [place] Measurement (FIM) Scale: 1 = Total Assistance (Subject = 0% +), 2 = Maximal Assistance (Subject = 25% +), 3 = Moderate Assistance (Subject = 50% +), 4 = Minimal Assistance (Subject = 75% +), 5 = Supervision, 6 = Modified [place] (Device), 7 = Complete [place] (Timely, Safely). Assessment Date/Time Source Assessment Type Assessment Skill Assessment Score Assessment Details No data available for this section
--- OUTSIDE RECORDS SUMMARY | 2024-10-11 17:41 | XMS_ITS | Clinical Summary ---
Author Organization [facility] Address [facility] [place] [address] Care Team Providers Care Grip Boss Name Role Phone Melissa Chaney PSYCH SALES SPECIALIST Primary Care Provider [phone] Allergies Active Allergy Reactions Criticality Noted Date [...] Comments Blood Pressure 129/92 06/19/2023 12:29 AM HOUSEKEEPER MANAGER Pulse 88 06/19/2023 12:29 AM HOUSEKEEPER MANAGER Temperature 36.4 C (97.6 F) 06/18/2023 10:13 PM HOUSEKEEPER MANAGER Respiratory Rate 18 06/19/2023 12:29 AM HOUSEKEEPER MANAGER Oxygen Saturation 100% 06/19/2023 12:29 AM HOUSEKEEPER MANAGER Inhaled Oxygen Concentration - - Weight 95.3 kg (210 lb) 06/18/2023 10:13 PM HOUSEKEEPER MANAGER Height 160 cm (5' 3 ) 06/18/2023 10:13 PM HOUSEKEEPER MANAGER Body Mass Index 37.2 06/18/2023 10:13 PM HOUSEKEEPER MANAGER Plan of Treatment Health Maintenance Due Date [...] patient's age to complete this topic Insurance [facility] Care Teams Grip Boss Relationship Specialty Start Date End Date Melissa Chaney, GENO [address] [place] [address] PCP - General NURSE PRACTITIONER 01/27/22
--- OUTSIDE RECORDS SUMMARY | 2024-10-11 17:41 | XMS_ITS | Clinical Summary ---
Author Organization [facility] Address [address] [place] [address] Care Team Providers Care Collect On Delivery Clerk Name Role Phone [address] Primary Care Prov ider Source Comments [facility],non-owned Affiliates and Associated Physician Practices is amultiple site organization consisting of ambulatory clinics and hospital sitesin [place], [place], [place] and [place]. This disclosure is being madepursuant to the Care Everywhere program and may not contain all information available regarding this patient. Last updated 18.[facility] Allergies Active Allergy Reactions Criticality Noted Date [...] age to complete this topic Care Teams Collect On Delivery Clerk Relationship Specialty Start Date End Date [facility] [address] [place] [address] PCP - General Family Medicine 07/12/21
[2024-10-11] MEDS: HYDROcodone/acetaminophen (*CRX) 5-325 MG TABLET 1 TAB PO (18:08)
[2024-10-11] MEDS: KETOROLAC 0.5% OP SOLN 5 ML BOTTLE 1 DROP AFFCTD EYE (18:44)
[2024-10-11] MEDS: ERYTHROMYCIN OPHTH OINTMENT 1 GM TUBE 1 APPLIC LEFT EYE (18:44)
[2024-10-11 18:51] VITALS: BP 145/90; PULSE 93; RESP 18; TEMP 36.7; O2SAT 100
== END 2024-10-11 18:51 | disposition home or self-care (01) ==
PROVIDERS: Emergency Provider Student in an Organized Health Care Education/Training Program
DX: S05.02XA Injury of conjunctiva and corneal abrasion without foreign body, left eye, initial encounter (principal); E10.9 Type 1 diabetes mellitus without complications; Z87.891 Personal history of nicotine dependence; W51.XXXA Accidental striking against or bumped into by another person, initial encounter
CPT/HCPCS: 99283; A9270